=== PATIENT | male | born 1940 | race Caucasian/White ===

== ENCOUNTER 2016-09-20 11:17 | Emergency (ER) | payer MEDICARE, MEDICAID ==
[~2016-09-20] VITALS: Ht 170.1 cm; Wt 81.6 kg
[~2016-09-20 11:17] MED LIST: BENTYL10 MG PO; EES400 MG PO; FLEXERIL5 MG PO; PEPCID20 MG PO; PREDNICOT20 MG PO; PREDNISONE50 MG PO; VENTOLIN H0.09 MG/AC INH; VOLTAREN50 M1 PO; ZITHROMAX Z PA250 MG PO
[2016-09-20 11:54] LABS: BASO # 0.1 10*3/uL (0.0-0.1); BASO % 0.7 % (0.0-1.0); EOS # 0.1 10*3/uL (0.0-0.4); EOS % 1.1 % (1.0-4.0); HEMATOCRIT 44.2 % (42.0-52.0); HEMOGLOBIN 14.3 g/dl (14.0-18.0); LYMPH # 1.5 10*3/uL (1.3-4.4); LYMPH % 17.2 % (27.0-41.0); MEAN CELL VOLUME 90.4 fl (80.0-94.0); MEAN CORPUSCULAR HGB 29.2 pg (27.0-31.0); MEAN CORPUSCULAR HGB CONC 32.4 g/dl (33.0-37.0); MEAN PLATELET VOLUME 9.9 fl (9.6-12.3); MONO # 0.6 10*3/uL (0.1-1.0); MONO % 6.6 % (3.0-9.0); NEUT # 6.5 10*3/uL (2.3-7.9); NEUT % 74.1 % (47.0-73.0); PLATELET COUNT AUTOMATED 200 10*3/uL (130-400); RED BLOOD COUNT 4.89 10*6/uL (4.50-5.90); RED CELL DISTRI WIDTH 13.5 % (0-14.5); WHITE BLOOD COUNT 8.8 10*3/uL (4.8-10.8)
[2016-09-20 12:09] LABS: BUN 15 mg/dl (7-24); CARBON DIOXIDE 29 mmol/L (21-32); CHLORIDE 104 mmol/L (98-107); EST GLOM FILT AFRICAN AMERICAN > 60 ml/min; GLUCOSE 114 mg/dL (65-99); POTASSIUM 4.1 mmol/L (3.5-5.1); SODIUM 142 mmol/L (136-145)
== END 2016-09-20 14:54 | disposition home or self-care (01) ==
LOC: ED 11:17
PROVIDERS: Emergency Medicine
DX: R55 Syncope and collapse (principal); R06.02 Shortness of breath; R42 Dizziness and giddiness; J44.9 Chronic obstructive pulmonary disease, unspecified; F17.200 Nicotine dependence, unspecified, uncomplicated

== ENCOUNTER 2016-09-22 19:33 | Inpatient (IN) | payer MEDICARE, MEDICAID ==
[~2016-09-22] VITALS: Ht 185.4 cm; Wt 90.8 kg
[2016-09-22 19:37] VITALS: BP 146/71
[2016-09-22 20:03] LABS: BASO % 0.5 % (0.0-1.0); EOS # 0.2 10*3/uL (0.0-0.4); EOS % 2.9 % (1.0-4.0); HEMATOCRIT 44.4 % (42.0-52.0); HEMOGLOBIN 14.4 g/dl (14.0-18.0); LYMPH # 1.7 10*3/uL (1.3-4.4); LYMPH % 20.5 % (27.0-41.0); MEAN CELL VOLUME 89.7 fl (80.0-94.0); MEAN CORPUSCULAR HGB 29.1 pg (27.0-31.0); MEAN CORPUSCULAR HGB CONC 32.4 g/dl (33.0-37.0); MEAN PLATELET VOLUME 10.4 fl (9.6-12.3); MONO # 0.7 10*3/uL (0.1-1.0); MONO % 8.2 % (3.0-9.0); NEUT # 5.7 10*3/uL (2.3-7.9); NEUT % 67.5 % (47.0-73.0); PLATELET COUNT AUTOMATED 219 10*3/uL (130-400); RED BLOOD COUNT 4.95 10*6/uL (4.50-5.90); RED CELL DISTRI WIDTH 13.5 % (0-14.5); WHITE BLOOD COUNT 8.4 10*3/uL (4.8-10.8)
[2016-09-22 20:10] VITALS: BP 125/64
[2016-09-22 20:23] LABS: ALBUMIN 4.2 gm/dl (3.1-4.5); ALKALINE PHOSPHATASE 81 U/L (45-117); BILIRUBIN, DIRECT 0.2 mg/dL (0.0-0.2); BILIRUBIN, TOTAL 0.6 mg/dl (0.2-1.0); BUN 20 mg/dl (7-24); CARBON DIOXIDE 27 mmol/L (21-32); CHLORIDE 105 mmol/L (98-107); EST GLOM FILT AFRICAN AMERICAN > 60 ml/min; GLUCOSE 119 mg/dL (65-99); MAGNESIUM 2.1 mg/dL (1.5-2.1); POTASSIUM 3.9 mmol/L (3.5-5.1); SGOT/AST 28 IU/L (3-35); SGPT/ALT 22 U/L (12-78); SODIUM 142 mmol/L (136-145); TOTAL PROTEIN 7.5 gm/dL (6.4-8.2)
[2016-09-22 20:24] LABS: TROPONIN I < 0.015 ng/ml (<0.045)
[2016-09-22 20:39] VITALS: BP 122/66
[2016-09-22 20:45] LABS: ABG BASE EXCESS 1.1 mmol/L (-2.0-2.0); ABG CO2 CONTENT 26.2 mmol/L (23-27); ABG TEMPERATURE 98.2 F (98.0-99.0); ARTERIAL BLOOD GAS PH 7.423 (7.35-7.45); ARTERIAL BLOOD GAS PO2 76.1 mmHg (80-90)
[2016-09-22 21:22] VITALS: BP 124/68
[2016-09-23] VITALS: BP 151/82
[2016-09-23 07:46] LABS: BASO % 0.1 % (0.0-1.0); HEMATOCRIT 44.2 % (42.0-52.0); HEMOGLOBIN 14.3 g/dl (14.0-18.0); LYMPH % 14.4 % (27.0-41.0); MEAN CELL VOLUME 90.6 fl (80.0-94.0); MEAN CORPUSCULAR HGB 29.3 pg (27.0-31.0); MEAN CORPUSCULAR HGB CONC 32.4 g/dl (33.0-37.0); MEAN PLATELET VOLUME 10.2 fl (9.6-12.3); MONO # 0.3 10*3/uL (0.1-1.0); MONO % 3.9 % (3.0-9.0); NEUT # 5.8 10*3/uL (2.3-7.9); NEUT % 81.2 % (47.0-73.0); PLATELET COUNT AUTOMATED 229 10*3/uL (130-400); RED BLOOD COUNT 4.88 10*6/uL (4.50-5.90); RED CELL DISTRI WIDTH 13.2 % (0-14.5); WHITE BLOOD COUNT 7.1 10*3/uL (4.8-10.8)
[2016-09-23 07:54] LABS: PROTHROMBIN TIME 10.8 SECONDS (9.0-12.4)
[2016-09-23 08:00] VITALS: BP 134/75
[2016-09-23 08:17] LABS: ALBUMIN 3.9 gm/dl (3.1-4.5); ALKALINE PHOSPHATASE 74 U/L (45-117); BILIRUBIN, TOTAL 0.6 mg/dl (0.2-1.0); BUN 21 mg/dl (7-24); CARBON DIOXIDE 27 mmol/L (21-32); CHLORIDE 104 mmol/L (98-107); CHOLESTEROL 175 mg/dL (<200); EST GLOM FILT AFRICAN AMERICAN > 60 ml/min; FREE T4 1.22 ng/dl (0.76-1.46); GLUCOSE 147 mg/dL (65-99); HDL CHOLESTEROL 53 mg/dl (40-60); LDL CHOLESTEROL 113 mg/dL (9-159); MAGNESIUM 2.3 mg/dL (1.5-2.1); POTASSIUM 4.1 mmol/L (3.5-5.1); SGOT/AST 23 IU/L (3-35); SGPT/ALT 22 U/L (12-78); SODIUM 140 mmol/L (136-145); TOTAL PROTEIN 7.3 gm/dL (6.4-8.2); TRIGLYCERIDES 44 mg/dl (<150); VLDL CHOLESTEROL 9 mg/dL (6-40)
[2016-09-23 08:27] LABS: HEMOGLOBIN A1c 6.3 % (4.8-5.6)
[2016-09-23 09:52] LABS: FOLIC ACID 6.07 ng/mL (>5.38); VITAMIN D, 25-HYDROXY 6.9 ng/mL (30-100)
[2016-09-23 11:47] VITALS: BP 118/50
[2016-09-23 16:00] VITALS: BP 136/69
== END 2016-09-23 19:24 | disposition home or self-care (01) | DRG 872 ==
LOC: ED 19:33 → EDHOLD 22:33 → 4E 22:45
PROVIDERS: Emergency Medicine; Internal Medicine Hospice and Palliative Medicine
DX: A41.9 Sepsis, unspecified organism (principal); J45.901 Unspecified asthma with (acute) exacerbation; J44.9 Chronic obstructive pulmonary disease, unspecified; F17.210 Nicotine dependence, cigarettes, uncomplicated; R73.03 Prediabetes; I10 Essential (primary) hypertension; E83.41 Hypermagnesemia; Z90.49 Acquired absence of other specified parts of digestive tract; Z80.0 Family history of malignant neoplasm of digestive organs; Z81.1 Family history of alcohol abuse and dependence

== ENCOUNTER 2016-09-24 03:15 | Inpatient (IN) | payer MEDICARE, MEDICAID ==
[~2016-09-24] VITALS: Ht 182.8 cm; Wt 93.1 kg
[2016-09-24] VITALS (8 sets, daily range): BP systolic 116–169; BP diastolic 58–97
--- NOTE | ~2016-09-24 | CON ---
[place], [place] REPORT OF CONSULTATION NAME: JACEK GRAY UNIT #: [id number] ROOM: 508 DOCTOR: GONZALO DASILVA MD BIRTHDATE: [birth year] DOS: 09/25/2016 PSYCHIATRIC CONSULT CHIEF COMPLAINT: "I know I have some memory issues but I do not know if I need to go to the psych unit." HISTORY OF PRESENT ILLNESS: This is a 76-year-old white male who was readmitted once again due to significant respiratory issues. The patient has a lengthy history of COPD and is a significant smoker, although this has been much less of late. From a psychiatric standpoint, it has been noticed that the patient has been suffering from some forgetfulness and short term memory loss. He was evaluated earlier today by Dr. John Keene, psychologist, who noted him to have mild cognitive impairment with some short term memory issues. The plan was ultimately for the patient to remain in the hospital until Saturday when his son was coming from [place], [place] to pick him up and move him out with him for at least a short period of time if not terminal make up operator. PAST MEDICAL HISTORY: Remarkable for asthma, carotid stenosis, cerebral atrophy, COPD, hypertension, anemia, obesity, syncopal episodes. MENTAL STATUS: The patient is alert and oriented to person, place, but not time. The patient reports that he has been in the hospital for approximately 1 week, it has been 1 day. He did repeat himself multiple times during the short interview. He does seem to be relatively euthymic, although he is somewhat anxious and did get himself mildly worked up when discussing what had happened within his family, especially with his sister. There is no emmanuel or hypomania. There are no auditory or visual hallucinations. No delusions, no paranoia. Short term memory has gaps, otherwise he is intact. DIAGNOSIS: Mild cognitive impairment. PLAN: I will go ahead and start him on Exelon patch 4.6 mg a day. I will check a serum ammonia level or vitamin D level or vitamin B12 level and a TSH. I am not convinced at this point in time that the patient has criteria for the U. While there is confusion, I see no agitation, severe depression and I question whether or not we will have significant criteria to admit. GONZALO DASILVA MD CM:CONSTR:REPORT OF CONSULTATION 1611 09/26/16 0222 interface
--- NOTE | ~2016-09-24 | PR ---
[place], [place] PROGRESS NOTE NAME: JACEK GRAY UNIT #: [id number] ROOM: 508 DOCTOR: AIMEE CHANG,ANN ROCHA) BIRTHDATE: [birth year] DOS: 09/25/[address] Vasquez today and she requested that the patient be evaluated for senior behavioral health because of his cognitive disorder. I did speak with Dr. Gonzalez and he will evaluate the patient later today for possible transfer to the Behavioral Health Unit for medication relative to his neurocognitive dysfunction. Overall, he understands fairly well, but admitted that he is having some definite short-term memory deficits and would possibly benefit from medications. DIAGNOSIS: Minor neurocognitive disorder -- Alzheimer's disease. Thank you very much for this consult. ANN YU ED.D CM:ISSAC [id number] ANN YU ED.D (BOB) 09/26/16 1034 interface
--- NOTE | ~2016-09-24 | CON ---
[place], [place] REPORT OF CONSULTATION NAME: JACEK GRAY UNIT #: [id number] ROOM: 508 DOCTOR: ALEXSANDRA NASCIMENTO MD BIRTHDATE: [birth year] DOS: 09/25/2016 REASON FOR CONSULTATION: Assess the patient COPD and cough. HISTORY OF PRESENT ILLNESS: A 76-year-old white male who has been noted very poor historian, admitted to the hospital under the care of hospitalist service on 09/24/2016. The patient has been admitted in the hospital on 09/23/2016, returned back to the hospital with similar symptoms. He reported symptoms of having shortness of breath, which has been occurring with exertion. Shortness of breath has been noted worsened recently as the patient went home. He was also noted symptoms of coughing, which has been noted without any sputum expectoration. The patient denies symptoms of chest pain. He denies any symptoms of wheezing. The patient is stating that one of the room where the patient lives, the patient has limited heating and that may have caused him increased shortness of breath. The patient stated that he has been feeling much better since he has been hospitalized again. REVIEW OF SYSTEMS: CONSTITUTIONAL: Fatigue and tiredness noted without symptoms of fever or chills. EYES: Denies any burning, redness, or tenderness. EARS, NOSE, THROAT: Denies sore throat, hoarseness, otalgia, postnasal drainage. CARDIOVASCULAR: Denies anginal pain, edema or pain of the lower extremities. GASTROINTESTINAL: Denies dysphagia, nausea, vomiting, diarrhea, abdominal pain, hematemesis, melena, or hematochezia. GENITOURINARY: Denies dysuria, suprapubic pain, hematuria. MUSCULOSKELETAL: Denies acute joint pain and redness. SKIN: No lesions or rashes. CENTRAL NERVOUS SYSTEM: Denies dizziness, headache, diplopia or syncopal episodes. Remaining systems were reviewed with the patient, they were noted all negative. PAST MEDICAL HISTORY: The patient was noted with history of: 1. COPD/centrilobular emphysema. 2. History of bronchial asthma. 3. The patient with a past history of syncopal episodes. 4. Essential hypertension. 5. Cerebral atrophy. PAST SURGICAL HISTORY: Reported as appendectomy. SOCIAL HISTORY: The patient stated that he lives at home. Tobacco use noted since teenager, half a pack of cigarettes per day that has been discontinued 2 months ago as per patient. He is and has 5 children. Denies any history of alcohol use or any illicit drugs use. MEDICATIONS: Current administered medication, which has been noted for this patient on this hospitalization were noted as use of Solu-Medrol 40 mg IV every 8 hours, Protonix 40 mg p.o. daily, DuoNeb every 4 hours, Levaquin IV daily and [place], [place] REPORT OF CONSULTATION NAME: JACEK GRAY UNIT #: [id number] ROOM: 508 DOCTOR: DAMION JUNIOR MD,ALEXSANDRA BIRTHDATE: [birth year] other p.r.n. medications administration. ALLERGIES: The drug allergy history of the patient noted as no known drug allergies. PHYSICAL EXAMINATION: GENERAL: This is a 76-year-old white male who has been noted currently without any acute distress at this time of assessment. He was noted awake and alert. VITAL SIGNS: The height for this patient recorded on current admission by the nursing staff with height of 6 feet, weight of 205 pounds, BMI 27.8. The vital signs shows normal temperature, respiratory rate 16-22, heart rate 65-69, blood pressure 150/64, 143/65. The pulse oxygen saturation of the patient recorded on room air as 96-97%. HEENT: Examination shows head was atraumatic. Eyes nonicterus. NECK: Supple. CARDIOVASCULAR: S1, S2 is audible. LUNGS: The patient was noted without any wheezing or crackles at the present time. The breaths are noted decreased bilaterally. ABDOMEN: Flat, soft, nontender. Bowel sounds present. CENTRAL NERVOUS SYSTEM: Cranial nerves 2 through 12 intact. No more focal deficits. MUSCULOSKELETAL: Does not show any acute deformities. SKIN: Showed no lesions or rashes. LABORATORY DATA: CBC of the patient that was done yesterday, WBC count 13.6, hemoglobin 13.8, hematocrit 41.3 with normal platelet count. CMP of the patient on 09/24/2016, BUN 30, creatinine was normal, glucose 114. CPK 483 with MB of 7.2. Normal troponin first set. Second set of CK-MB, troponin, CPK is still elevated 460 with MB of 8.9. Normal troponin. The additional 2 sets of CK-MB, troponin is still noted with elevation of CPK more than 400 with elevation of MB and the troponin was noted normal. CBC this morning, WBC count 8.1, hemoglobin 12, hematocrit 37.6, platelet count was normal. The BMP of the patient that was done this morning noted normal BUN and creatinine. The blood culture of the patient, which were taken on the 09/22/2016 on previous admission showed no bacterial growth. Final culture results were pending. One view chest x-ray that was done for this patient on the 09/24/2016 does not show any acute pulmonary infiltration or other abnormalities. IMPRESSION: 1. The patient who has been noted with possibility of dementia would be considered with the previous CT scan of the head that was done in 08/2015 shows moderate atrophy of the brain. Discharge from the hospital for this patient recently and readmitted as the patient was complaining of symptoms of shortness of breath with possible exacerbation of chronic obstructive pulmonary disease. The patient seems to be noted poor historian as well with some forgetfulness component as well. 2. History of tobacco use for a long period of time as well. 3. Essential hypertension and other medical illnesses. The chest x-ray does not show any acute pulmonary infiltration. [place], [place] REPORT OF CONSULTATION NAME: JACEK GRAY UNIT #: [id number] ROOM: 508 DOCTOR: DAMION JUNIOR MD,[facility] BIRTHDATE: [birth year] PLAN OF TREATMENT: The patient would be recommended about to continue the steroids for another 24 hours with bronchodilators and monitoring of the symptoms closely. Start the patient on the long-term management of respiratory disease for chronic obstructive pulmonary disease and bronchial asthma with the use of Dulera. Though the Solu-Medrol for the patient could be decreased to 40 mg every 8 hours. Possible discharge home for this patient with some social support might need to be considered for this patient for discharge in the morning depends on further improvement and resolution of the acute symptoms. Supportive therapy, plan of management, and other care. Usual treatment, all other plan of management. Thank you for allowing me to participate in the care of this patient. ALEXSANDRA BRUNO MD CM:CONSTR:REPORT OF CONSULTATION 1205 09/25/16 2229 interface
--- NOTE | ~2016-09-24 | CON ---
[place], [place] REPORT OF CONSULTATION NAME: JACEK GRAY UNIT #: [id number] ROOM: 508 DOCTOR: ANN YU ED.D) BIRTHDATE: [birth year] DOS: 09/24/2016 HISTORY OF PRESENT ILLNESS: The patient is a 76-year-old male referred by the hospitalist for competency evaluation. At the present time, this patient is on the 5th floor at [facility]. He states he is and has 5 children. He worked in a [employer] for quite some time and also worked in [place], [place] for the [employer]. He states he does not regularly follow up with his family physician. His medical history is pertinent for asthma, carotid stenosis, cerebral atrophy, COPD, hypertension, anemia and sepsis. His medications include Levaquin, Solu-Medrol, Zofran, DuoNeb, [place], Protonix, Restoril, and Lovenox. States he drinks no alcoholic beverages and quit smoking 1 month ago. This patient was awake, alert and oriented in all 3 spheres. He indicated it is [facility], it is August 2016. He did have some mild confusion, however. His short term memory does appear to be mildly impaired. He states he is angry at his sister for putting him in the hospital and I explained to him that he needed to be in the hospital because he was being treated for serious infection. He stated at that point in time, he was willing to stay in the hospital till his infection was treated but then he was going to move to [place] with his son, Kalpesh and the son's family. I am not certain if that is accurate or not and I will reevaluate this patient on 09/25/2016 regarding his competency. He does appear to understand risks and benefits of treatment, but apparently had not been taking his medications. [facility] his sister and also his niece who has been trying to coordinate his medications. He has obviously not been medication compliant. DIAGNOSES: 1. Mild neurocognitive disorder. 2. Persistent depressive disorder. RECOMMENDATIONS: I will reevaluate this patient tomorrow once he is more medically stable to assess his competency. Thank you very much for this consult. ANN YU ED.D CM:CONSTR:REPORT OF CONSULTATION 1628 09/25/16 0614 interface
--- NOTE | ~2016-09-24 | PR ---
[place], [place] PROGRESS NOTE NAME: [id number] UNIT #: [id number] ROOM: 508 DOCTOR: DAMION JUNIOR MD,ALEXSANDRA BIRTHDATE: [birth year] DOS: 09/26/2016 SUBJECTIVE: The patient has been noted in confusional status for the patient and was noted 1:1 observation. Psych consultation has been ordered. He has not been noted with any symptoms of chest pain at the present time. Denies any coughing with shortness of breath and stated that he is feeling well. OBJECTIVE: VITAL SIGNS: Shows normal temperature, respiratory rate 18, heart rate of 68, blood pressure 134/58. Pulse oxygen saturation on room air 97% saturation. HEENT: Examination shows no acute change. NECK: Supple. CARDIOVASCULAR SYSTEM: S1, S2 audible. LUNGS: For the patient was noted without any wheeze or crackles. At this time, breaths noted mild to moderately decreased bilaterally. ABDOMEN: Soft, nontender. IMPRESSION: The patient with acute exacerbation of chronic obstructive pulmonary disease with confusional status, possibility of psychosis for this patient currently being assessed and treated as well. PLAN OF TREATMENT: The patient was started on oral prednisone 40 mg daily, which will be gradually tapered. Continue other previous treatment, plan and management. Bronchodilators and other treatments as in progress. ALEXSANDRA BRUNO MD CM:PNTRANS 1131 10 ALEXSANDRA JUNIOR MD 09/26/162111 interface
[2016-09-24 03:29] LABS: BASO % 0.1 % (0.0-1.0); EOS % 0.1 % (1.0-4.0); HEMATOCRIT 41.3 % (42.0-52.0); HEMOGLOBIN 13.8 g/dl (14.0-18.0); IG # 0.1 10*3/uL (0.0-0.1); LYMPH # 1.5 10*3/uL (1.3-4.4); LYMPH % 11.1 % (27.0-41.0); MEAN CELL VOLUME 88.6 fl (80.0-94.0); MEAN CORPUSCULAR HGB 29.6 pg (27.0-31.0); MEAN CORPUSCULAR HGB CONC 33.4 g/dl (33.0-37.0); MEAN PLATELET VOLUME 10.2 fl (9.6-12.3); MONO # 1.3 10*3/uL (0.1-1.0); MONO % 9.5 % (3.0-9.0); NEUT # 10.8 10*3/uL (2.3-7.9); NEUT % 78.8 % (47.0-73.0); PLATELET COUNT AUTOMATED 218 10*3/uL (130-400); RED BLOOD COUNT 4.66 10*6/uL (4.50-5.90); RED CELL DISTRI WIDTH 13.8 % (0-14.5); WHITE BLOOD COUNT 13.6 10*3/uL (4.8-10.8)
[2016-09-24 03:46] LABS: ALBUMIN 3.9 gm/dl (3.1-4.5); ALKALINE PHOSPHATASE 76 U/L (45-117); BILIRUBIN, TOTAL 0.4 mg/dl (0.2-1.0); BUN 30 mg/dl (7-24); CARBON DIOXIDE 27 mmol/L (21-32); CHLORIDE 106 mmol/L (98-107); CPK 483 U/L (39-308); EST GLOM FILT AFRICAN AMERICAN > 60 ml/min; GLUCOSE 114 mg/dL (65-99); MAGNESIUM 2.1 mg/dL (1.5-2.1); POTASSIUM 3.9 mmol/L (3.5-5.1); SGOT/AST 27 IU/L (3-35); SGPT/ALT 24 U/L (12-78); SODIUM 144 mmol/L (136-145); TOTAL PROTEIN 7.4 gm/dL (6.4-8.2)
[2016-09-24 03:47] LABS: TROPONIN I < 0.015 ng/ml (<0.045)
[2016-09-24 06:39] LABS: TROPONIN I 0.021 ng/ml (<0.045)
[2016-09-24 06:58] LABS: CKMB 8.9 ng/ml (0.5-3.6)
[2016-09-24 12:27] LABS: CPK 489 U/L (39-308)
[2016-09-24 12:33] LABS: TROPONIN I < 0.015 ng/ml (<0.045)
[2016-09-24 12:35] LABS: CKMB 9.5 ng/ml (0.5-3.6)
[2016-09-24 18:19] LABS: CPK 444 U/L (39-308)
[2016-09-24 18:25] LABS: CKMB 8.2 ng/ml (0.5-3.6); TROPONIN I < 0.015 ng/ml (<0.045)
[2016-09-25] VITALS: BP 162/62
[2016-09-25 05:54] LABS: HEMATOCRIT 37.6 % (42.0-52.0); LYMPH # 0.9 10*3/uL (1.3-4.4); LYMPH % 11.6 % (27.0-41.0); MEAN CELL VOLUME 90.6 fl (80.0-94.0); MEAN CORPUSCULAR HGB 28.9 pg (27.0-31.0); MEAN CORPUSCULAR HGB CONC 31.9 g/dl (33.0-37.0); MEAN PLATELET VOLUME 10.9 fl (9.6-12.3); MONO # 0.6 10*3/uL (0.1-1.0); MONO % 7.2 % (3.0-9.0); NEUT # 6.5 10*3/uL (2.3-7.9); PLATELET COUNT AUTOMATED 201 10*3/uL (130-400); RED BLOOD COUNT 4.15 10*6/uL (4.50-5.90); RED CELL DISTRI WIDTH 13.8 % (0-14.5); WHITE BLOOD COUNT 8.1 10*3/uL (4.8-10.8)
[2016-09-25 06:05] LABS: CARBON DIOXIDE 27 mmol/L (21-32); CHLORIDE 107 mmol/L (98-107); EST GLOM FILT AFRICAN AMERICAN > 60 ml/min; GLUCOSE 115 mg/dL (65-99); MAGNESIUM 2.1 mg/dL (1.5-2.1); SODIUM 143 mmol/L (136-145)
[2016-09-25 06:10] LABS: BUN 15 mg/dl (7-24)
[2016-09-25 08:00] VITALS: BP 156/64
[2016-09-25 12:00] VITALS: BP 150/62
[2016-09-25 16:00] VITALS: BP 161/71
[2016-09-25 17:30] LABS: VITAMIN D, 25-HYDROXY 7.7 ng/mL (30-100)
[2016-09-25 20:00] VITALS: BP 139/57
[2016-09-26] VITALS: BP 150/76
[2016-09-26 08:00] VITALS: BP 134/58
[2016-09-26 12:00] VITALS: BP 147/63
[2016-09-26] MEDS ORDERED: PREDNISONE10 MG PO (13:16)
[2016-09-26] MEDS ORDERED: DULE1ARO INH (13:16)
[2016-09-26] MEDS ORDERED: RIVASTIGMINE1 EACH T (13:16)
[2016-09-26] MEDS ORDERED: LEVAQUIN500 M2 PO (13:16)
[2016-09-26] MEDS ORDERED: VITAMIN D50000 I3 PO (13:16)
[2016-09-26] MEDS ORDERED: PROAIR HFA8.5 GM INH (13:17)
[2016-09-26] MEDS ORDERED: RESTORIL15 MG PO (16:51)
== END 2016-09-26 15:54 | disposition home health service (06) | DRG 192 ==
LOC: ED 03:15 → EDHOLD 04:17 → 5E 04:17
PROVIDERS: Family Medicine Sports Medicine; Internal Medicine; Psychiatry & Neurology Psychiatry
DX: J44.1 Chronic obstructive pulmonary disease with (acute) exacerbation (principal); E86.0 Dehydration; G30.9 Alzheimer's disease, unspecified; F02.80 Dementia in other diseases classified elsewhere, unspecified severity, without behavioral disturbance, psychotic disturbance, mood disturbance, and anxiety; F41.9 Anxiety disorder, unspecified; E66.9 Obesity, unspecified; F17.210 Nicotine dependence, cigarettes, uncomplicated; I10 Essential (primary) hypertension; J45.909 Unspecified asthma, uncomplicated; F34.1 Dysthymic disorder; Z81.1 Family history of alcohol abuse and dependence; Z85.028 Personal history of other malignant neoplasm of stomach; Z68.27 Body mass index [BMI] 27.0-27.9, adult; G31.9 Degenerative disease of nervous system, unspecified

== ENCOUNTER 2016-09-26 16:02 | Inpatient (IN) | payer MEDICARE, MEDICAID ==
[~2016-09-26] VITALS: Ht 185.4 cm; Wt 95.3 kg
--- NOTE | ~2016-09-26 | WRIGHTHP ---
[place], [place] PATIENT HISTORY AND PHYSICAL EXAM [id number] #: [id number] ROOM: 309 DOCTOR: GONZALO DASILVA MD BIRTHDATE: [birth year] DOS: 09/27/2016 INITIAL PSYCHIATRIC EVALUATION CHIEF COMPLAINT: "I don't know, I just get so anxious and I'm depressed." HISTORY OF PRESENT ILLNESS: This is a 76-year-old white male who presented to the ER with complaints of increased shortness of breath as well as an altered mental status. The patient was subsequently admitted to the Medical floor due to an exacerbation of his COPD and during the course of the evaluation, he was noted to have significant depression, anxiety and some cognitive loss. The patient would become extremely fearful as the evening hours came on and would sundown to the point where he would become visibly anxious and agitated. His sleep was disturbed with difficulty falling asleep, sleep continuity disturbance, tape controlled machine stitcher awakening. He also offered a plethora of somatic complaints as well as poor appetite and poor energy. It was felt at this point in time that a U admission was warranted to rule out further organic factors, to stabilize on medication and to engage in individual and hawthorne milieu activities. PAST MEDICAL HISTORY: Remarkable for asthma, COPD, carotid stenosis, hypertension, normocytic anemia, prediabetes and syncopal episodes. MENTAL STATUS: Upon admission, the patient is alert and oriented with some time gaps. He does appear rather flat and blunted with some anxious overtones. He endorses multiple neurovegetative symptoms. He does also endorse that he has noticed he has become much more forgetful and is very upset over this. He is not exhibiting any emmanuel or hypomania. Likewise, there are no overt auditory or visual hallucinations. No delusions are present. He does at times have some slowness to process and short term memory is poor. DIAGNOSIS: Major depression, recurrent, severe. PLAN: I have already started him on Exelon patch 4.6 mg a day for the cognitive decline. I will increase this to 9.5 mg daily and adjust accordingly. Given the fact that a predominant depression is persisting, I will start him on Trintellix 10 mg at bedtime. The Trintellix will help him sleep as well as improve his anxiety and also will improve cognition and concentration. Will engage him in individual and hawthorne milieu activities with the plan then to return with his son to [place]. [place], [place] PATIENT HISTORY AND PHYSICAL EXAM NAME: JACEK GRAY UNIT #: [id number] ROOM: 309 DOCTOR: GONZALO DASILVA MD BIRTHDATE: [birth year] GONZALO DASILVA MD CM:HISPHYS:PATIENT HISTORY AND PHYSICAL EXAMINATION 1 0 GONZALO DASILVA MD 09/27/16830 interface
--- NOTE | ~2016-09-26 | DS ---
[place], [place] DISCHARGE SUMMARY NAME: JACEK GRAY [facility] #: [id number] UNIT #: [id number] ROOM: 314 DOCTOR: GONZALO DASILVA MD BIRTHDATE: [birth year] DOS: 09/29/2016 CHIEF COMPLAINT: "I don't know, I just get anxious and I am depressed." HISTORY OF PRESENT ILLNESS: This is a 76-year-old white male who presented to the ER with complaints of increased shortness of breath as well as altered mental status. He was subsequently admitted to medical floor due to an exacerbation of his COPD. During the course of his evaluation, he was found to have significant depression, anxiety and cognitive loss. He would become extremely fearful, especially in the late afternoon and early evening hours to the point of becoming visibly anxious and agitated. He required a sitter one-on-one to prevent any type of harm to self and others. He was noted to have poor sleep with difficulty falling asleep, sleep continuity disturbance, scientific investigator awakening. He also had poor appetite and a plethora of somatic complaints. For this reason, it was felt that an inpatient stay at the [facility] was warranted. PAST MEDICAL HISTORY: Remarkable for COPD, asthma, carotid stenosis, hypertension, normocytic anemia, prediabetes and syncopal episodes. SUMMARY OF HOSPITAL COURSE: The patient was admitted to the unit where he had already been started on Exelon patch 4.6 mg a day while on the medical unit, this was increased to 9.5 mg a day. Nurses did report that his first night here was horrible that he became outwardly anxious once again pacing the johnson and could not calm himself down. Because of the depression and anxiety, he was started on Trintellix 10 mg at bedtime, which was rapidly increased to 20 with good results. This seemed to help sleep and calm him down dramatically. Of note, screening examination showed him to have a low vitamin D level as well as a significantly low vitamin B12 level. He was given vitamin D 50,000 international units weekly and given a B12 injection of 1000 mcg IM now and then to be followed up monthly. Family was contacted and his son in [place] stated that he wanted to come and get him and bring him back to [place]. The patient had spent many years living there working for the [employer] and was happy to do so being able to be with his son and grandchildren. The son did drive into [place] and was to pick him up on the day of discharge on 09/29/2016, he would then return to live with the son and have followup in the [facility]. MENTAL STATUS AT DISCHARGE: The patient was alert and oriented to person, place with some mild time gaps. Mood was strongly trending towards euthymia. The anxiety had subsided. There is no emmanuel or hypomania. There are no overt auditory or visual hallucinations noted. No paranoia was present. Short term memory had gaps, otherwise he was intact. FINAL DIAGNOSES: Major depression, recurrent; anxiety disorder, not otherwise specified; mild cognitive impairment; vitamin B12 deficiency; vitamin D deficiency. PLAN: All of his scripts except for the vitamin B12 injection have been e-scribed to [facility]. He has been instructed to take the vitamin B12 [place], [place] DISCHARGE SUMMARY NAME: JACEK GRAY UNIT #: [id number] ROOM: 314 DOCTOR: GONZALO DASILVA MD BIRTHDATE: [birth year] injection prescription to [place] and have it filled there by a primary care physician who can follow him for his vitamin B12 deficiency. GONZALO DASILVA MD CM:DISCHARG [id number] [id number] GONZALO DASILVA MD 10/01/16 0217 interface
[~2016-09-26 16:02] MED LIST changes: +DULE1ARO INH; +LEVAQUIN500 M2 PO; +PREDNISONE10 MG PO; +PROAIR HFA8.5 GM INH; +RIVASTIGMINE1 EACH T; +VITAMIN D50000 I3 PO
[2016-09-26 16:03] VITALS: BP 152/78
[2016-09-26] MEDS ORDERED: RESTORIL15 MG PO (16:51)
[2016-09-26 17:33] VITALS: BP 152/78
[2016-09-26 19:27] VITALS: BP 129/52
[2016-09-27 06:23] LABS: BASO % 0.1 % (0.0-1.0); EOS # 0.1 10*3/uL (0.0-0.4); EOS % 0.6 % (1.0-4.0); HEMATOCRIT 40.8 % (42.0-52.0); HEMOGLOBIN 13.3 g/dl (14.0-18.0); LYMPH # 2.5 10*3/uL (1.3-4.4); LYMPH % 28.3 % (27.0-41.0); MEAN CELL VOLUME 90.7 fl (80.0-94.0); MEAN CORPUSCULAR HGB 29.6 pg (27.0-31.0); MEAN CORPUSCULAR HGB CONC 32.6 g/dl (33.0-37.0); MEAN PLATELET VOLUME 10.4 fl (9.6-12.3); MONO # 0.8 10*3/uL (0.1-1.0); MONO % 8.6 % (3.0-9.0); NEUT # 5.5 10*3/uL (2.3-7.9); NEUT % 62.1 % (47.0-73.0); PLATELET COUNT AUTOMATED 232 10*3/uL (130-400); RED CELL DISTRI WIDTH 13.6 % (0-14.5); WHITE BLOOD COUNT 8.8 10*3/uL (4.8-10.8)
[2016-09-27 07:01] LABS: CHLORIDE 105 mmol/L (98-107); POTASSIUM 3.5 mmol/L (3.5-5.1); SODIUM 142 mmol/L (136-145)
[2016-09-27 07:06] VITALS: BP 139/88
[2016-09-27 07:18] LABS: ALBUMIN 3.7 gm/dl (3.1-4.5); ALKALINE PHOSPHATASE 64 U/L (45-117); BILIRUBIN, TOTAL 0.4 mg/dl (0.2-1.0); BUN 15 mg/dl (7-24); CARBON DIOXIDE 26 mmol/L (21-32); CHOLESTEROL 172 mg/dL (<200); EST GLOM FILT AFRICAN AMERICAN > 60 ml/min; GLUCOSE 101 mg/dL (65-99); HDL CHOLESTEROL 74 mg/dl (40-60); LDL CHOLESTEROL 86 mg/dL (9-159); SGOT/AST 26 IU/L (3-35); SGPT/ALT 25 U/L (12-78); TOTAL PROTEIN 6.7 gm/dL (6.4-8.2); TRIGLYCERIDES 61 mg/dl (<150); VLDL CHOLESTEROL 12 mg/dL (6-40)
[2016-09-27 08:37] LABS: VITAMIN D, 25-HYDROXY 21.9 ng/mL (30-100)
[2016-09-27 20:34] VITALS: BP 129/80
[2016-09-28 07:07] VITALS: BP 149/71
[2016-09-28] MEDS ORDERED: BRIN10TA PO (09:14)
[2016-09-28] MEDS ORDERED: RIVASTIGMINE1 EAC1 T (09:14)
[2016-09-28] MEDS ORDERED: VITAMIN D50000 I3 PO (09:14)
[2016-09-28 16:52] LABS: BILIRUBIN NEGATIVE (NEGATIVE); BLOOD TRACE-INTACT (NEGATIVE); CLARITY SL CLOUDY (CLEAR); COLOR YELLOW (YELLOW); GLUCOSE NEGATIVE (NEGATIVE); KETONE NEGATIVE (NEGATIVE); LEUKO ESTERASE NEGATIVE (NEGATIVE); NITRITE NEGATIVE (NEGATIVE); PROTEIN NEGATIVE (NEGATIVE); SPECIFIC GRAVITY <= 1.005 (1.005-1.030); UROBILINOGEN 0.2 E.U./dl (0.2-1.0)
[2016-09-28 17:00] LABS: RBC 0-2 rbc/hpf (0-2); WBC 0-2 wbc/hpf (0-5)
[2016-09-28 17:01] LABS: BACTERIA 1+; EPITHELIAL CELLS 0-2; URINE REFLEX COMMENT NO (NO)
[2016-09-28 20:04] VITALS: BP 136/70
[2016-09-29 08:37] VITALS: BP 135/73
[2016-09-29] MEDS ORDERED: DULE1ARO INH (09:26)
[2016-09-29] MEDS ORDERED: PROAIR HFA8.5 GM INH (09:26)
[2016-09-29] MEDS ORDERED: DOXYCYCLINE100 M3 PO (09:26)
[2016-09-29] MEDS ORDERED: PREDNISONE10 MG PO (09:26)
[2016-09-29] MEDS ORDERED: B12,B-12,B 12500 MC1 PO (09:26)
== END 2016-09-29 13:25 | disposition home or self-care (01) | DRG 885 ==
LOC: 3N 16:02
PROVIDERS: Psychiatry & Neurology Psychiatry
DX: F33.2 Major depressive disorder, recurrent severe without psychotic features (principal); D64.9 Anemia, unspecified; G30.9 Alzheimer's disease, unspecified; F02.80 Dementia in other diseases classified elsewhere, unspecified severity, without behavioral disturbance, psychotic disturbance, mood disturbance, and anxiety; J44.1 Chronic obstructive pulmonary disease with (acute) exacerbation; I10 Essential (primary) hypertension; R73.03 Prediabetes; J45.909 Unspecified asthma, uncomplicated; F41.9 Anxiety disorder, unspecified; E53.8 Deficiency of other specified B group vitamins; E55.9 Vitamin D deficiency, unspecified; F17.200 Nicotine dependence, unspecified, uncomplicated; E66.9 Obesity, unspecified; Z90.49 Acquired absence of other specified parts of digestive tract; Z81.1 Family history of alcohol abuse and dependence; Z80.0 Family history of malignant neoplasm of digestive organs; Z79.2 Long term (current) use of antibiotics; Z79.899 Other long term (current) drug therapy; Z68.27 Body mass index [BMI] 27.0-27.9, adult